=== PATIENT | female | born 1950 | race Caucasian/White ===

== ENCOUNTER 2017-12-08 22:13 | Inpatient (IN) | payer SELFPAY ==
[~2017-12-08] VITALS: Ht 152.4 cm; Wt 63.5 kg
[2017-12-09] MEDS ORDERED: MORPHINE SULFATE 4 MG/ML CPJ (NOT FOR IM USE) IV STA (01:00)
[2017-12-09] MEDS ORDERED: SODIUM CHLORIDE 0.9% 1,000 ML IV ONE (01:00)
[2017-12-09] MEDS ORDERED: ONDANSETRON HCL 4MG/2ML VIAL IV STA (01:00)
[2017-12-09 01:19] LABS: BASOPHILS % 0.3 % (0.0-2.0); EOSINOPHILS % 0.2 % (0.0-5.0); HEMATOCRIT. 34.7 % (36.0-48.0); HEMOGLOBIN. 12.2 g/dL (12.0-16.0); LYMPHOCYTES % 13.2 % (20.0-50.0); MEAN CORPUSCULAR HEMOGLOBIN 28.7 pg (28.0-32.0); MEAN CORPUSCULAR VOLUME 81.3 fL (81.0-99.0); MONOCYTES % 4.1 % (2.0-8.0); NEUTROPHILS % 82.2 % (40.0-76.0); PLATELET 352 x1000/uL (130-400); RED BLOOD CELL COUNT 4.26 mill/uL (4.2-5.4); RED CELL DISTRIBUTION WIDTH 13.5 % (11.6-14.6)
[2017-12-09 01:23] LABS: CHLORIDE 80 mEq/L (98-107)
[2017-12-09 02:41] LABS: CLARITY URINE CLEAR (CLEAR); COLOR URINE YELLOW (YELLOW); KETONES URINE TRACE (NEGATIVE); NITRITE URINE NEGATIVE (NEGATIVE); OCCULT BLOOD URINE NEGATIVE (NEGATIVE); PH URINE 7.5 (4.5-8.0); PROTEIN URINE TRACE (NEGATIVE); SPECIFIC GRAVITY URINE 1.008 (1.005-1.030); UROBILINOGEN URINE 0.2 E.U./dL (0.2-1.0)
[2017-12-09 02:42] LABS: LEUKOCYTE ESTERASE URINE TRACE (NEGATIVE)
[2017-12-09] MEDS ORDERED: IOHEXOL-300 100 ML BOTTLE ONE (03:12)
[2017-12-09] MEDS ORDERED: SODIUM CHLORIDE 0.9% 1,000 ML IV SCH (04:36)
[2017-12-09] MEDS ORDERED: POTASSIUM CHLORIDE 20MEQ TABLET SR PO ONE (04:45)
[2017-12-09] MEDS ORDERED: ACETAMINOPHEN 325MG TABLET PO PRN (07:15)
[2017-12-09] MEDS ORDERED: MORPHINE SULFATE 4 MG/ML CPJ (NOT FOR IM USE) IV PRN (07:15)
[2017-12-09] MEDS ORDERED: CLONIDINE 0.1MG TABLET PO PRN (07:15)
[2017-12-09] MEDS ORDERED: ONDANSETRON HCL 4MG/2ML VIAL IV PRN (07:15)
[2017-12-09] MEDS ORDERED: DOCUSATE SODIUM 100MG CAPSULE PO PRN (09:00)
[2017-12-09] MEDS ORDERED: POTASSIUM CHLORIDE 20MEQ TABLET SR PO NR (09:27)
[2017-12-09] MEDS ORDERED: DEXT 5%/0.45% NACL KCL 10MEQ/L 1,000 ML IV SCH (09:45)
[2017-12-09] MEDS ORDERED: POTASSIUM CHLORIDE INJ 10 MEQ in DEXT 5%/0.9% NACL 1,000 ML IV SCH (10:30)
[2017-12-09 10:35] LABS: CHLORIDE 93 mEq/L (98-107)
[2017-12-09] MEDS ORDERED: ONDANSETRON 4MG ODT PO PRN (11:00)
[2017-12-09] MEDS ORDERED: NA PHOS,M-B/NA PHOS,DI-BA ENEMA 118ML PR PRN (11:00)
[2017-12-09 12:00] VITALS: BP 115/51
[2017-12-09 13:00] VITALS: BP 115/51
[2017-12-09] MEDS ORDERED: AMLO1TAB48 MT (13:12)
[2017-12-09] MEDS ORDERED: [UNRECOGNIZED DRUG - OTHER] (13:12)
[2017-12-09] MEDS ORDERED: TRAM50TA94 PO (13:12)
[2017-12-09] MEDS ORDERED: ATOR20TA65 MT (13:12)
[2017-12-09] MEDS ORDERED: FAMO-135 MT (13:12)
[2017-12-09] MEDS ORDERED: GLIM1TAB2 MT (13:12)
[2017-12-09] MEDS ORDERED: ASPI-986 MT (13:12)
[2017-12-09 16:00] VITALS: BP 104/59
[2017-12-09 20:00] VITALS: BP 113/60
[2017-12-10] VITALS: BP 101/56
[2017-12-10 04:00] VITALS: BP 102/56
[2017-12-10 07:10] LABS: BASOPHILS % 1.4 % (0.0-2.0); EOSINOPHILS % 2.8 % (0.0-5.0); HEMATOCRIT. 35.9 % (36.0-48.0); HEMOGLOBIN. 12.2 g/dL (12.0-16.0); LYMPHOCYTES % 31.6 % (20.0-50.0); MEAN CORPUSCULAR HEMOGLOBIN 28.8 pg (28.0-32.0); MEAN PLATELET VOLUME 7.4 fl (7.4-10.4); NEUTROPHILS % 51.2 % (40.0-76.0); PLATELET 310 x1000/uL (130-400); RED BLOOD CELL COUNT 4.22 mill/uL (4.2-5.4); RED CELL DISTRIBUTION WIDTH 13.8 % (11.6-14.6)
[2017-12-10 07:42] LABS: CHLORIDE 104 mEq/L (98-107)
[2017-12-10 08:00] VITALS: BP 101/53
[2017-12-10] MEDS ORDERED: POTASSIUM CHLORIDE 20MEQ TABLET SR PO SCH (10:30)
[2017-12-10 11:01] VITALS: BP 101/53
== END 2017-12-10 11:36 | disposition home or self-care (01) | DRG 251 ==
LOC: ER 22:50 → EDBEDREQTM 12-09 04:42 → EDBEDREQ 12-09 04:42 → SUPCPDRO 12-09 07:12 → ENRESERV 12-09 10:12 → CANRESERV 12-09 10:12 → 6EST 12-09 10:59 → EDBEDREQSVC 12-09 11:00 → ENRESERV 12-09 11:17
PROVIDERS: ADMIT Hospitalist; ATTEND Hospitalist
DX: R10.9 Unspecified abdominal pain (principal); E87.1 Hypo-osmolality and hyponatremia; I10 Essential (primary) hypertension; E11.9 Type 2 diabetes mellitus without complications; K59.00 Constipation, unspecified; E87.6 Hypokalemia; G43.909 Migraine, unspecified, not intractable, without status migrainosus; Z90.49 Acquired absence of other specified parts of digestive tract
CPT/HCPCS: 36415; 71045; 74177; 80048; 80053; 81003; 83605; 83690; 85025; 87086; 93005; 93970; 96361; 96374; 96375; 99285; J2270; J2405; J3480; J7030; J7042; Q9967